=== PATIENT | female | born 1945 | race Caucasian/White ===

== ENCOUNTER 2016-10-07 01:41 | Inpatient (IN) | payer OTHER ==
[~2016-10-07] VITALS: Ht 165.1 cm; Wt 59.1 kg
[2016-10-07] VITALS (7 sets, daily range): BP systolic 109–172; RESP 16–24; TEMP 98–98.8; Ht 165.1 cm; Wt 59.1 kg
[2016-10-07] MEDS ORDERED: METHYLPRED SOD SUCC 125 MG/2 ML VIAL ONE (02:17)
[2016-10-07] MEDS ORDERED: DUONEB INH ONE ×2 (02:26)
[2016-10-07] MEDS ORDERED: SALINE FLUSH 10 ML FLUSH PRN (03:45)
[2016-10-07] MEDS: SODIUM CHLORIDE 0.9% FLUSH BAG 500 ML IV SCH (05:43)
[2016-10-07] MEDS ORDERED: DUONEB INH SCH (07:00)
[2016-10-07] MEDS ORDERED: LIDOCAINE 2% SYR 5 ML IV ONE (07:33)
[2016-10-07] MEDS ORDERED: PROPOFOL 50ML PER ML IV ONE (07:33)
[2016-10-07] MEDS: CEFTRIAXONE 1 GM in SODIUM CHLORIDE 0.9% 50 ML IV SCH (07:40)
[2016-10-07] MEDS: SALINE FLUSH 10 ML FLUSH SCH ×2 (07:41→19:51)
[2016-10-07] MEDS: ENOXAPARIN 40 MG/0.4 ML SYR SUBQ SCH ×2 (07:41→07:43)
[2016-10-07] MEDS: NEB-ALBUTEROL 2.5 MG/3 ML INH PRN ×3 (08:15→20:16)
[2016-10-07] MEDS ORDERED: PREDNISONE 20 MG TAB PO SCH (09:00)
[2016-10-07] MEDS ORDERED: NICOTINE 7 MG/24 HR TRANSDERM SCH (09:00)
[2016-10-07] MEDS ORDERED: GLUCAGON 1 MG VIAL IM PRN (09:50)
[2016-10-07] MEDS ORDERED: DEXTROSE 50% SYRINGE 50 ML IV PRN (09:50)
[2016-10-07] MEDS: ACETAMINOPHEN 325 MG TAB PO PRN ×2 (10:10→19:54)
[2016-10-07] MEDS: METHYLPRED SOD SUCC 125 MG/2 ML VIAL IV SCH ×2 (10:11→16:26)
[2016-10-07] MEDS: NICOTINE 21 MG/24 HR TRANSDERM SCH (10:11)
[2016-10-07] MEDS: METOPROLOL XL 25 MG TAB PO SCH (10:18)
[2016-10-07] MEDS ORDERED: PHARMACY TO DOSE XX SCH (12:55)
[2016-10-07] MEDS: DUONEB INH SCH ×4 (14:18→22:29)
[2016-10-07] MEDS: NEB-BROVANA 15 MCG/2 ML INH SCH ×2 (14:18→17:08)
[2016-10-07] MEDS: NEB-BUDESONIDE 0.5 MG INH SCH ×2 (14:18→17:08)
[2016-10-07] MEDS: ENOXAPARIN 60 MG/0.6 ML SYR SUBQ SCH (14:46)
[2016-10-07] MEDS ORDERED: NITROGLYCERIN SL 0.4 MG TAB SL PRN (15:10)
[2016-10-07] MEDS: FLUOXETINE 20 MG CAP PO SCH (19:54)
[2016-10-07] MEDS: MIRTAZAPINE 15 MG TAB PO SCH (19:54)
[2016-10-08] MEDS: METHYLPRED SOD SUCC 125 MG/2 ML VIAL IV SCH ×3 (00:11→17:14)
[2016-10-08] MEDS: DUONEB INH SCH ×6 (01:38→22:15)
[2016-10-08 02:14] VITALS: RESP 22
[2016-10-08] MEDS: ENOXAPARIN 60 MG/0.6 ML SYR SUBQ SCH (03:00)
[2016-10-08 03:21] VITALS: BP_SYST 119; RESP 18; TEMP 97.7
[2016-10-08] MEDS: SODIUM CHLORIDE 0.9% FLUSH BAG 500 ML IV SCH (05:44)
[2016-10-08] MEDS: NEB-BROVANA 15 MCG/2 ML INH SCH ×2 (06:19→18:41)
[2016-10-08] MEDS: NEB-BUDESONIDE 0.5 MG INH SCH ×2 (06:19→18:41)
[2016-10-08 07:28] VITALS: BP_SYST 120; RESP 16; TEMP 98.6
[2016-10-08] MEDS: NICOTINE 21 MG/24 HR TRANSDERM SCH (08:13)
[2016-10-08] MEDS: SALINE FLUSH 10 ML FLUSH SCH ×2 (08:13→20:01)
[2016-10-08] MEDS: ONDANSETRON 4 MG VIAL IV PRN ×2 (08:13→19:42)
[2016-10-08] MEDS: METOPROLOL XL 25 MG TAB PO SCH (08:14)
[2016-10-08] MEDS: AZITHROMYCIN 250 MG in SODIUM CHLORIDE 0.9% 250 ML IV SCH (08:16)
[2016-10-08] MEDS ORDERED: NICOTINE 21 MG/24 HR TRANSDERM SCH (09:00)
[2016-10-08] MEDS: CEFTRIAXONE 1 GM in SODIUM CHLORIDE 0.9% 50 ML IV SCH (10:07)
[2016-10-08 11:11] VITALS: BP_SYST 131; RESP 16; TEMP 98.9
[2016-10-08] MEDS: NEB-ALBUTEROL 2.5 MG/3 ML INH PRN (12:44)
[2016-10-08] MEDS ORDERED: ASPIRIN 81 MG CHEW TAB PO ONE (12:55)
[2016-10-08] MEDS: GUAIFENESIN ER 600 MG TABCR PO SCH ×2 (13:42→20:01)
[2016-10-08 15:05] VITALS: BP_SYST 125; RESP 16; TEMP 98.8
[2016-10-08 19:36] VITALS: BP_SYST 124; RESP 20; TEMP 98.7
[2016-10-08] MEDS: MIRTAZAPINE 15 MG TAB PO SCH (20:01)
[2016-10-08] MEDS: FLUOXETINE 20 MG CAP PO SCH (20:01)
[2016-10-08] MEDS: Atorvastatin 40 MG TAB PO SCH (20:01)
[2016-10-08] MEDS: ACETAMINOPHEN 325 MG TAB PO PRN (20:06)
[2016-10-09] VITALS (9 sets, daily range): BP systolic 133–161; RESP 14–25; TEMP 98.1–98.8
[2016-10-09] MEDS: METHYLPRED SOD SUCC 125 MG/2 ML VIAL IV SCH ×3 (00:56→16:23)
[2016-10-09] MEDS: DUONEB INH SCH ×6 (02:20→22:11)
[2016-10-09] MEDS: SODIUM CHLORIDE 0.9% FLUSH BAG 500 ML IV SCH (05:50)
[2016-10-09] MEDS: NEB-BUDESONIDE 0.5 MG INH SCH ×2 (06:20→18:07)
[2016-10-09] MEDS: NEB-BROVANA 15 MCG/2 ML INH SCH ×2 (06:20→18:06)
[2016-10-09] MEDS: SALINE FLUSH 10 ML FLUSH SCH ×2 (08:39→20:22)
[2016-10-09] MEDS: CEFTRIAXONE 1 GM in SODIUM CHLORIDE 0.9% 50 ML IV SCH (08:40)
[2016-10-09] MEDS: ENOXAPARIN 40 MG/0.4 ML SYR SUBQ SCH ×2 (08:43→08:48)
[2016-10-09] MEDS: GUAIFENESIN ER 600 MG TABCR PO SCH ×2 (08:43→20:22)
[2016-10-09] MEDS: ASPIRIN 81 MG CHEW TAB PO SCH (08:44)
[2016-10-09] MEDS: NICOTINE 21 MG/24 HR TRANSDERM SCH (08:47)
[2016-10-09] MEDS ORDERED: METOPROLOL XL 50 MG TAB PO SCH (09:00)
[2016-10-09] MEDS: AZITHROMYCIN 250 MG in SODIUM CHLORIDE 0.9% 250 ML IV SCH (09:38)
[2016-10-09] MEDS: ACETAMINOPHEN 325 MG TAB PO PRN (15:50)
[2016-10-09] MEDS: ONDANSETRON 4 MG VIAL IV PRN ×2 (15:51→22:28)
[2016-10-09] MEDS: Atorvastatin 40 MG TAB PO SCH (20:23)
[2016-10-09] MEDS: FLUOXETINE 20 MG CAP PO SCH (20:23)
[2016-10-09] MEDS: MIRTAZAPINE 15 MG TAB PO SCH (20:23)
[2016-10-10] VITALS (32 sets, daily range): BP systolic 112–178; RESP 11–34; TEMP 97.6–98.6
[2016-10-10] MEDS: DUONEB INH SCH ×6 (03:15→22:59)
[2016-10-10] MEDS: SODIUM CHLORIDE 0.9% FLUSH BAG 500 ML IV SCH (06:00)
[2016-10-10] MEDS: NEB-ATROVENT INH SCH ×3 (06:30→17:29)
[2016-10-10] MEDS: NEB-BUDESONIDE 0.5 MG INH SCH ×2 (07:00→17:28)
[2016-10-10] MEDS: NEB-BROVANA 15 MCG/2 ML INH SCH ×2 (07:00→17:28)
[2016-10-10] MEDS: CEFTRIAXONE 1 GM in SODIUM CHLORIDE 0.9% 50 ML IV SCH (08:58)
[2016-10-10] MEDS: AZITHROMYCIN 250 MG in SODIUM CHLORIDE 0.9% 250 ML IV SCH (08:58)
[2016-10-10] MEDS: ENOXAPARIN 40 MG/0.4 ML SYR SUBQ SCH (09:00)
[2016-10-10] MEDS: NICOTINE 21 MG/24 HR TRANSDERM SCH (09:01)
[2016-10-10] MEDS: ASPIRIN 81 MG CHEW TAB PO SCH (09:02)
[2016-10-10] MEDS: GUAIFENESIN ER 600 MG TABCR PO SCH ×2 (09:03→20:35)
[2016-10-10] MEDS: Furosemide 40 MG/4 ML VIAL IV SCH (09:15)
[2016-10-10] MEDS: METOPROLOL XL 100 MG TAB PO SCH (09:15)
[2016-10-10] MEDS: ACETAMINOPHEN 325 MG TAB PO PRN (09:16)
[2016-10-10] MEDS: SALINE FLUSH 10 ML FLUSH SCH ×2 (09:17→20:37)
[2016-10-10] MEDS: NEB-ALBUTEROL 2.5 MG/3 ML INH PRN ×2 (09:29→13:22)
[2016-10-10] MEDS: NEB-NACL 3% 4 ML NEBU INH SCH ×2 (19:25→22:59)
[2016-10-10] MEDS: ONDANSETRON 4 MG VIAL IV PRN (19:42)
[2016-10-10] MEDS ORDERED: NEB-ALBUTEROL 5 MG/ML 20 ML INH ONE (19:44)
[2016-10-10] MEDS: NEB-ALBUTEROL 5 MG/ML 20 ML INH SCH ×2 (19:57→22:00)
[2016-10-10] MEDS ORDERED: MISSING DOSE XX ONE (20:05)
[2016-10-10] MEDS: METHYLPRED SOD SUCC 125 MG/2 ML VIAL IV SCH ×2 (20:12→20:34)
[2016-10-10] MEDS: Atorvastatin 40 MG TAB PO SCH (20:35)
[2016-10-10] MEDS: ACETAMINOPHEN 500 MG TAB PO PRN (20:35)
[2016-10-10] MEDS: FLUOXETINE 20 MG CAP PO SCH (20:36)
[2016-10-10] MEDS: MIRTAZAPINE 15 MG TAB PO SCH (20:36)
[2016-10-11] VITALS (28 sets, daily range): BP systolic 101–148; RESP 6–23; TEMP 97.4–98.6
[2016-10-11] MEDS: DUONEB INH SCH ×6 (02:27→22:09)
[2016-10-11] MEDS: NEB-BUDESONIDE 0.5 MG INH SCH ×2 (05:15→17:53)
[2016-10-11] MEDS: NEB-BROVANA 15 MCG/2 ML INH SCH ×2 (05:15→17:53)
[2016-10-11] MEDS: NEB-NACL 3% 4 ML NEBU INH SCH ×4 (05:15→22:09)
[2016-10-11] MEDS: SODIUM CHLORIDE 0.9% FLUSH BAG 500 ML IV SCH (05:46)
[2016-10-11] MEDS: ENOXAPARIN 40 MG/0.4 ML SYR SUBQ SCH (08:14)
[2016-10-11] MEDS: NEB-ALBUTEROL 2.5 MG/3 ML INH PRN ×2 (08:20→20:18)
[2016-10-11] MEDS: Furosemide 40 MG/4 ML VIAL IV SCH (08:26)
[2016-10-11] MEDS: METHYLPRED SOD SUCC 125 MG/2 ML VIAL IV SCH ×3 (08:26→23:50)
[2016-10-11] MEDS: SALINE FLUSH 10 ML FLUSH SCH ×2 (08:26→20:06)
[2016-10-11] MEDS: CEFTRIAXONE 1 GM in SODIUM CHLORIDE 0.9% 50 ML IV SCH (08:26)
[2016-10-11] MEDS: GUAIFENESIN ER 600 MG TABCR PO SCH ×2 (09:00→20:06)
[2016-10-11] MEDS ORDERED: NEB-XOPENEX 0.63 MG/3 ML INH ONE (14:55)
[2016-10-11] MEDS: ASPIRIN 81 MG CHEW TAB PO SCH (15:39)
[2016-10-11] MEDS: ACETAMINOPHEN 500 MG TAB PO PRN ×2 (15:39→23:52)
[2016-10-11] MEDS: METOPROLOL XL 100 MG TAB PO SCH (15:39)
[2016-10-11] MEDS: NICOTINE 21 MG/24 HR TRANSDERM SCH (15:40)
[2016-10-11] MEDS: FLUOXETINE 20 MG CAP PO SCH (20:06)
[2016-10-11] MEDS: Atorvastatin 40 MG TAB PO SCH (20:06)
[2016-10-11] MEDS: PANTOPRAZOLE 40 MG TAB PO SCH (20:06)
[2016-10-11] MEDS: MIRTAZAPINE 15 MG TAB PO SCH (20:06)
[2016-10-12] VITALS (20 sets, daily range): BP systolic 63–166; RESP 14–25; TEMP 98–98.5
[2016-10-12] MEDS: DUONEB INH SCH ×6 (03:09→22:30)
[2016-10-12] MEDS: SODIUM CHLORIDE 0.9% FLUSH BAG 500 ML IV SCH (05:01)
[2016-10-12] MEDS: NEB-BROVANA 15 MCG/2 ML INH SCH ×2 (05:18→17:27)
[2016-10-12] MEDS: NEB-BUDESONIDE 0.5 MG INH SCH ×2 (05:19→17:28)
[2016-10-12] MEDS: NEB-NACL 3% 4 ML NEBU INH SCH ×4 (05:19→22:30)
[2016-10-12] MEDS: CEFTRIAXONE 1 GM in SODIUM CHLORIDE 0.9% 50 ML IV SCH (08:43)
[2016-10-12] MEDS: GUAIFENESIN ER 600 MG TABCR PO SCH ×2 (08:44→20:28)
[2016-10-12] MEDS: ENOXAPARIN 40 MG/0.4 ML SYR SUBQ SCH (08:44)
[2016-10-12] MEDS: NICOTINE 21 MG/24 HR TRANSDERM SCH (08:45)
[2016-10-12] MEDS: METHYLPRED SOD SUCC 125 MG/2 ML VIAL IV SCH (08:45)
[2016-10-12] MEDS: ASPIRIN 81 MG CHEW TAB PO SCH (08:45)
[2016-10-12] MEDS: Furosemide 20 MG TAB PO SCH (08:45)
[2016-10-12] MEDS: SALINE FLUSH 10 ML FLUSH SCH ×2 (08:46→20:28)
[2016-10-12] MEDS: METOPROLOL XL 100 MG TAB PO SCH (08:54)
[2016-10-12] MEDS: NEB-ALBUTEROL 2.5 MG/3 ML INH PRN ×3 (09:20→20:58)
[2016-10-12] MEDS: PANTOPRAZOLE 40 MG TAB PO SCH (20:28)
[2016-10-12] MEDS: MIRTAZAPINE 15 MG TAB PO SCH (20:28)
[2016-10-12] MEDS: Atorvastatin 40 MG TAB PO SCH (20:28)
[2016-10-12] MEDS: ACETAMINOPHEN 500 MG TAB PO PRN (20:29)
[2016-10-12] MEDS: FLUOXETINE 20 MG CAP PO SCH (20:29)
[2016-10-12] MEDS: ONDANSETRON 4 MG VIAL IV PRN (20:29)
[2016-10-13] MEDS: DUONEB INH SCH ×6 (02:35→22:41)
[2016-10-13 03:00] VITALS: BP_SYST 100; RESP 18; TEMP 98.1
[2016-10-13] MEDS: SODIUM CHLORIDE 0.9% FLUSH BAG 500 ML IV SCH (06:05)
[2016-10-13] MEDS: NEB-NACL 3% 4 ML NEBU INH SCH ×4 (06:23→22:41)
[2016-10-13] MEDS: NEB-BROVANA 15 MCG/2 ML INH SCH ×2 (06:23→17:26)
[2016-10-13] MEDS: NEB-BUDESONIDE 0.5 MG INH SCH ×2 (06:23→17:26)
[2016-10-13 07:53] VITALS: BP_SYST 130; RESP 18; TEMP 98.3
[2016-10-13] MEDS ORDERED: MISSING DOSE XX ONE (08:15)
[2016-10-13] MEDS: ENOXAPARIN 40 MG/0.4 ML SYR SUBQ SCH (08:45)
[2016-10-13] MEDS: Furosemide 20 MG TAB PO SCH (08:46)
[2016-10-13] MEDS: SALINE FLUSH 10 ML FLUSH SCH ×2 (08:46→19:52)
[2016-10-13] MEDS: NICOTINE 21 MG/24 HR TRANSDERM SCH (08:46)
[2016-10-13] MEDS: CEFTRIAXONE 1 GM in SODIUM CHLORIDE 0.9% 50 ML IV SCH (08:46)
[2016-10-13] MEDS: PREDNISONE 20 MG TAB PO SCH (08:47)
[2016-10-13] MEDS: ASPIRIN 81 MG CHEW TAB PO SCH (08:47)
[2016-10-13] MEDS: GUAIFENESIN ER 600 MG TABCR PO SCH ×2 (08:47→19:50)
[2016-10-13] MEDS: METOPROLOL XL 100 MG TAB PO SCH (08:47)
[2016-10-13 11:45] VITALS: BP_SYST 128; RESP 18; TEMP 98.1
[2016-10-13] MEDS: FLUCONAZOLE 100 MG TAB PO SCH (14:42)
[2016-10-13 16:22] VITALS: BP_SYST 133; RESP 18; TEMP 98.2
[2016-10-13] MEDS: Atorvastatin 40 MG TAB PO SCH (19:50)
[2016-10-13] MEDS: PANTOPRAZOLE 40 MG TAB PO SCH (19:50)
[2016-10-13] MEDS: ONDANSETRON 4 MG VIAL IV PRN (19:51)
[2016-10-13] MEDS: MIRTAZAPINE 15 MG TAB PO SCH (19:51)
[2016-10-13] MEDS: FLUOXETINE 20 MG CAP PO SCH (19:51)
[2016-10-13] MEDS: ACETAMINOPHEN 500 MG TAB PO PRN (19:52)
[2016-10-13 20:57] VITALS: BP_SYST 146; RESP 18; TEMP 98
[2016-10-14] VITALS (7 sets, daily range): BP systolic 114–148; RESP 18–20; TEMP 97.6–98.2
[2016-10-14] MEDS: DUONEB INH SCH ×6 (02:48→22:15)
[2016-10-14] MEDS: NEB-BUDESONIDE 0.5 MG INH SCH ×2 (05:08→18:29)
[2016-10-14] MEDS: NEB-BROVANA 15 MCG/2 ML INH SCH ×2 (05:09→18:29)
[2016-10-14] MEDS: NEB-NACL 3% 4 ML NEBU INH SCH ×4 (05:09→22:15)
[2016-10-14] MEDS: SODIUM CHLORIDE 0.9% FLUSH BAG 500 ML IV SCH (05:48)
[2016-10-14] MEDS: SALINE FLUSH 10 ML FLUSH SCH ×2 (08:37→20:05)
[2016-10-14] MEDS: NICOTINE 21 MG/24 HR TRANSDERM SCH (08:38)
[2016-10-14] MEDS: ASPIRIN 81 MG CHEW TAB PO SCH (08:38)
[2016-10-14] MEDS: ENOXAPARIN 40 MG/0.4 ML SYR SUBQ SCH ×2 (08:38→08:44)
[2016-10-14] MEDS: Furosemide 20 MG TAB PO SCH (08:38)
[2016-10-14] MEDS: LEVOFLOXACIN 750 MG TAB PO SCH (08:38)
[2016-10-14] MEDS: METOPROLOL XL 100 MG TAB PO SCH (08:38)
[2016-10-14] MEDS: GUAIFENESIN ER 600 MG TABCR PO SCH ×2 (08:38→20:05)
[2016-10-14] MEDS: FLUCONAZOLE 100 MG TAB PO SCH (08:39)
[2016-10-14] MEDS: PREDNISONE 20 MG TAB PO SCH (08:39)
[2016-10-14] MEDS: NEB-ALBUTEROL 2.5 MG/3 ML INH PRN (08:57)
[2016-10-14] MEDS: LISINOPRIL 5 MG TAB PO SCH (11:50)
[2016-10-14] MEDS: ACETAMINOPHEN 500 MG TAB PO PRN (17:08)
[2016-10-14] MEDS: ONDANSETRON 4 MG VIAL IV PRN (17:09)
[2016-10-14] MEDS: Atorvastatin 40 MG TAB PO SCH (20:05)
[2016-10-14] MEDS: PANTOPRAZOLE 40 MG TAB PO SCH (20:05)
[2016-10-14] MEDS: FLUOXETINE 20 MG CAP PO SCH (20:06)
[2016-10-14] MEDS: MIRTAZAPINE 15 MG TAB PO SCH (20:06)
[2016-10-15] MEDS: DUONEB INH SCH ×6 (02:23→23:01)
[2016-10-15 03:17] VITALS: BP_SYST 126; RESP 18; TEMP 97.8
[2016-10-15] MEDS: SODIUM CHLORIDE 0.9% FLUSH BAG 500 ML IV SCH (06:00)
[2016-10-15] MEDS: NEB-BROVANA 15 MCG/2 ML INH SCH ×2 (07:21→17:00)
[2016-10-15] MEDS: NEB-NACL 3% 4 ML NEBU INH SCH ×4 (07:21→23:01)
[2016-10-15] MEDS: NEB-BUDESONIDE 0.5 MG INH SCH ×2 (07:21→17:00)
[2016-10-15 08:04] VITALS: BP_SYST 122; RESP 20; TEMP 98.6
[2016-10-15] MEDS: ENOXAPARIN 40 MG/0.4 ML SYR SUBQ SCH (08:09)
[2016-10-15] MEDS: NICOTINE 21 MG/24 HR TRANSDERM SCH (08:15)
[2016-10-15] MEDS: LISINOPRIL 5 MG TAB PO SCH (08:16)
[2016-10-15] MEDS: Furosemide 20 MG TAB PO SCH (08:16)
[2016-10-15] MEDS: FLUCONAZOLE 100 MG TAB PO SCH (08:16)
[2016-10-15] MEDS: METOPROLOL XL 100 MG TAB PO SCH (08:16)
[2016-10-15] MEDS: PREDNISONE 20 MG TAB PO SCH (08:16)
[2016-10-15] MEDS: LEVOFLOXACIN 750 MG TAB PO SCH (08:16)
[2016-10-15] MEDS: ASPIRIN 81 MG CHEW TAB PO SCH (08:16)
[2016-10-15] MEDS: SALINE FLUSH 10 ML FLUSH SCH ×2 (08:17→21:33)
[2016-10-15] MEDS: GUAIFENESIN ER 600 MG TABCR PO SCH ×2 (08:17→20:25)
[2016-10-15 11:35] VITALS: BP_SYST 119; RESP 20; TEMP 98.1
[2016-10-15] MEDS: NEB-ALBUTEROL 2.5 MG/3 ML INH PRN (12:01)
[2016-10-15 15:20] VITALS: BP_SYST 102; RESP 20; TEMP 98.4
[2016-10-15] MEDS: ACETAMINOPHEN 500 MG TAB PO PRN (19:44)
[2016-10-15 20:00] VITALS: BP_SYST 120; RESP 22; TEMP 98.2
[2016-10-15] MEDS: PANTOPRAZOLE 40 MG TAB PO SCH (20:25)
[2016-10-15] MEDS: MIRTAZAPINE 15 MG TAB PO SCH (20:25)
[2016-10-15] MEDS: FLUOXETINE 20 MG CAP PO SCH (20:25)
[2016-10-15] MEDS: Atorvastatin 40 MG TAB PO SCH (21:30)
[2016-10-16] VITALS: BP_SYST 121; RESP 20; TEMP 97
[2016-10-16] MEDS: DUONEB INH SCH ×4 (02:34→14:37)
[2016-10-16 03:00] VITALS: BP_SYST 113; RESP 20; TEMP 97.6
[2016-10-16] MEDS: ONDANSETRON 4 MG VIAL IV PRN (03:12)
[2016-10-16] MEDS: SODIUM CHLORIDE 0.9% FLUSH BAG 500 ML IV SCH (05:42)
[2016-10-16] MEDS: NEB-BUDESONIDE 0.5 MG INH SCH (07:35)
[2016-10-16] MEDS: NEB-NACL 3% 4 ML NEBU INH SCH ×2 (07:35→11:25)
[2016-10-16] MEDS: NEB-BROVANA 15 MCG/2 ML INH SCH (07:35)
[2016-10-16] MEDS: ENOXAPARIN 40 MG/0.4 ML SYR SUBQ SCH (08:07)
[2016-10-16] MEDS: GUAIFENESIN ER 600 MG TABCR PO SCH (08:10)
[2016-10-16] MEDS: ASPIRIN 81 MG CHEW TAB PO SCH (08:10)
[2016-10-16] MEDS: NICOTINE 21 MG/24 HR TRANSDERM SCH (08:10)
[2016-10-16] MEDS: PREDNISONE 20 MG TAB PO SCH (08:11)
[2016-10-16] MEDS: Furosemide 20 MG TAB PO SCH (08:11)
[2016-10-16] MEDS: LEVOFLOXACIN 750 MG TAB PO SCH (08:11)
[2016-10-16] MEDS: LISINOPRIL 5 MG TAB PO SCH (08:11)
[2016-10-16] MEDS: METOPROLOL XL 100 MG TAB PO SCH (08:11)
[2016-10-16 08:12] VITALS: BP_SYST 113; RESP 18; TEMP 97.9
[2016-10-16] MEDS: SALINE FLUSH 10 ML FLUSH SCH (08:12)
[2016-10-16 13:52] VITALS: BP_SYST 100; RESP 18; TEMP 97.9
[2016-10-16 14:15] VITALS: BP_SYST 100; RESP 18; TEMP 97.9
== END 2016-10-16 14:00 | disposition home or self-care (01) | DRG 190 ==
LOC: ENRESERV → ENRESERVTM → CANRESERV → ENRESERVDT → ER 01:41 → EMR 03:19 → ENPENDDIS 03:19 → 4THE 04:32 → CCU 10-09 23:15 → PCU 10-12 14:46
PROVIDERS: ADMIT Family Medicine; ATTEND Family Medicine
PROC: 0B958ZX Drainage of Right Middle Lobe Bronchus, Via Natural or Artificial Opening Endoscopic, Diagnostic (ICD-10-PCS; 2016-10-11)
PROC: 0B968ZX Drainage of Right Lower Lobe Bronchus, Via Natural or Artificial Opening Endoscopic, Diagnostic (ICD-10-PCS; principal; 2016-10-11 12:05)
DX: J44.0 Chronic obstructive pulmonary disease with (acute) lower respiratory infection (principal); J18.9 Pneumonia, unspecified organism; I50.41 Acute combined systolic (congestive) and diastolic (congestive) heart failure; I21.4 Non-ST elevation (NSTEMI) myocardial infarction; B37.0 Candidal stomatitis; F17.210 Nicotine dependence, cigarettes, uncomplicated; J44.1 Chronic obstructive pulmonary disease with (acute) exacerbation; J20.9 Acute bronchitis, unspecified; I11.0 Hypertensive heart disease with heart failure; R73.9 Hyperglycemia, unspecified; E09.9 Drug or chemical induced diabetes mellitus without complications; Z99.81 Dependence on supplemental oxygen
CPT/HCPCS: 36600; 71010; 71020; 80048; 80053; 80061; 82553; 82607; 82746; 82803; 82947; 83036; 83880; 84145; 84484; 85007; 85025; 85027; 87071; 87102; 87116; 87205; 87206; 87496; 87529; 87798; 88108; 89051; 93005; 93306; 94640; 94644; 94645; 94660; 94762; 94799; 96374; 99223; 99232; 99233; 99291